=== PATIENT | female | born 1990 | race African-American/Black ===

== ENCOUNTER 2018-06-15 09:37 | Inpatient (IN) ==
[2018-06-15] MEDS ORDERED: ONDANSETRON 4 MG/2 ML VIAL IV PRN ×3 (09:54→16:32)
[2018-06-15] MEDS ORDERED: LACTATED RINGERS 1,000 ML IV PRN (09:54)
[2018-06-15] MEDS ORDERED: SODIUM CHLORIDE 0.9% 100 ML IV ONE (10:05)
[2018-06-15] MEDS ORDERED: AMPICILLIN 2,000 MG VIAL ONE (10:05)
[2018-06-15] MEDS ORDERED: BETAMETH SODIUM PHOS/ACETATE 30 MG/5 ML VIAL ONE (10:05)
[2018-06-15] MEDS: LACTATED RINGERS 1,000 ML IV SCH ×2 (10:08→11:56)
[2018-06-15] MEDS ORDERED: AMPICILLIN INJ 2,000 MG in SODIUM CHLORIDE 0.9% 100 ML IV SCH (10:30)
[2018-06-15] MEDS ORDERED: BETAMETH SODIUM PHOS/ACETATE 30 MG/5 ML VIAL IM SCH (10:30)
[2018-06-15 10:33] LABS: Basophils % 0.3 % (0.0-0.8); Eosinophils # 0.1 10*3/uL (0.0-0.87); Eosinophils % 0.6 % (0.00-10.9); Hematocrit 26.7 VOL% (35.7-47.0); Immature Granulocytes % 0.7 %; Lymphocytes # 2.1 10*3/uL (1.4-4.0); Lymphocytes % 15.7 % (21.3-54.2); Mean Corpuscular Hemoglobin 29 PG (27-34); Mean Corpuscular Volume 97.4 FL (87-102); Mean Platelet Volume 8.4 FL (9.6-12.0); Monocytes # 0.5 10*3/uL (0.11-0.8); Monocytes % 3.9 % (1.7-12.7); Neutrophils # 10.6 10*3/uL (1.4-7.4); Neutrophils % 78.8 % (38.7-73.9); Platelet Count 453 T/CUMM (130-400); Red Blood Count 2.74 MC/CUMM (3.8-5.5); Red Cell Distribution Width 13.6 % (9.3-17.3); White Blood Count 13.4 T/CUMM (4-12)
[2018-06-15 10:50] LABS: Alanine Aminotransferase < 9 U/L (13-56); Alkaline Phosphatase 223 U/L (45-117); Aspartate Amino Transferase 10 U/L (0-37); Bilirubin,Total < 0.39 MG/DL (0.2-1.0); Blood Urea Nitrogen 7 MG/DL (7-18); Calcium 8.4 MG/DL (8.5-10.1); Glucose 205 MG/DL (74-106); Osmolality,Calculated 271.2 MOS/KG (273-304); Potassium 3.8 MMOL/L (3.5-5.1); Sodium 134 MMOL/L (136-145); Total Protein 7.6 G/DL (6.4-8.3)
[2018-06-15 10:56] LABS: Amorphous Crystals,Urine Occasional /HPF (Few); Apearance,Urine Slightly Hazy (Clear); Bacteria,Urine Occasional /HPF (Few); Barbiturates Screen,Urine Negative (Negative); Benzodiazepines Screen,Urine Negative (Negative); Bilirubin,Urine Negative (Negative); Blood, Urine Small mg/dL (Negative); Cannabinoid Screen,Urine Negative (Negative); Glucose,Urine (UA) Negative (Negative); Ketones,Urine Negative (Negative); Mucus,Urine Occasional /LPF (Occasional); Nitrite,Urine Negative (Negative); Opiate Screen,Urine Negative (Negative); Phencyclidine Screen,Urine Negative (Negative); Protein,Urine 30 MG/DL; RBC,Urine 1 /HPF (0-4); Squamous Epithelial Cell,Urine Occasional /HPF (0-10); Urine Color Yellow (Yellow); Urine Specific Gravity 1.012 (1.001-1.035); WBC,Urine 100 /HPF (0-6)
[2018-06-15] MEDS ORDERED: INSULIN REGULAR 100 UNIT/ML SUBCUT ONE (11:43)
[2018-06-15] MEDS ORDERED: BUTORPHANOL 1 MG/ML VIAL IV PRN (13:56)
[2018-06-15] MEDS ORDERED: NALOXONE 0.4 MG/ML VIAL IV PRN (14:57)
[2018-06-15] MEDS ORDERED: FAMOTIDINE 20 MG/2 ML VIAL IV ONE (14:57)
[2018-06-15] MEDS ORDERED: ePHEDrine 50 MG/ML AMP IV PRN (14:57)
[2018-06-15] MEDS ORDERED: hydrOXYzine HCL 25 MG/1 ML VIAL IM PRN (14:57)
[2018-06-15] MEDS ORDERED: PROMETHAZINE 25 MG/1 ML VIAL IM PRN (14:57)
[2018-06-15] MEDS ORDERED: diphenhydrAMINE 50 MG/1 ML VIAL IV PRN (14:57)
[2018-06-15] MEDS ORDERED: fentaNYL 2 MCG/ROPIV 0.2% EPID 100 ML EPIDURAL SCH (15:00)
[2018-06-15] MEDS ORDERED: CITRIC ACID/SODIUM CITRATE 30 ML UDCUP ONE (15:05)
[2018-06-15] MEDS ORDERED: CITRIC ACID/SODIUM CITRATE 30 ML UDCUP PO ONE (15:08)
[2018-06-15] MEDS ORDERED: LIDOCAINE 1% 50 ML VIAL ONE (15:19)
[2018-06-15] MEDS ORDERED: BUTORPHANOL 2 MG/ML VIAL ONE (15:19)
[2018-06-15] MEDS ORDERED: OXYTOCIN/LR 20 UNIT/1,000 ML BAG IV ONE ×2 (15:20→16:32)
[2018-06-15] MEDS ORDERED: miSOPROStol 200 MCG TABLET ONE (15:20)
[2018-06-15] MEDS ORDERED: METHYLERGONOVINE 0.2 MG/1 ML AMP ONE (15:20)
[2018-06-15] MEDS ORDERED: TRANEXAMIC ACID 1,000 MG/10 ML VIAL ONE (15:20)
[2018-06-15] MEDS ORDERED: CARBOPROST TROMETHAMINE 250 MCG/ML AMP IM ONE (15:20)
[2018-06-15] MEDS ORDERED: BUTORPHANOL 2 MG/ML VIAL IV ONE (15:49)
[2018-06-15] MEDS ORDERED: CLINDAMYCIN INJ 900 MG in PREMIX 1 EACH IV SCH (16:30)
[2018-06-15] MEDS ORDERED: BISACODYL 10 MG SUPP RECTAL PRN (16:32)
[2018-06-15] MEDS ORDERED: oxyCODONE/ACETAMINOPHEN 5-325 MG TABLET PO PRN ×2 (16:32)
[2018-06-15] MEDS ORDERED: WITCH HAZEL PADS 100/JAR TOP PRN (16:32)
[2018-06-15] MEDS ORDERED: GLUCAGON 1 MG VIAL IM PRN (16:32)
[2018-06-15] MEDS ORDERED: LANOLIN 50% CREAM 0.3 OZ TUBE TOP PRN (16:32)
[2018-06-15] MEDS ORDERED: BENZOCAINE 20%/MENTHOL 0.5% SPRAY 56 GM CAN TOP PRN (16:32)
[2018-06-15] MEDS ORDERED: HYDROCORTISONE 2.5% RECTAL CREAM 30 GM TUBE TOP PRN (16:32)
[2018-06-15] MEDS ORDERED: ACETAMINOPHEN 325 MG TABLET PO PRN (16:32)
[2018-06-15] MEDS ORDERED: DEXTROSE 50% 25 GM/50 ML VIAL IV PRN (16:32)
[2018-06-15] MEDS ORDERED: DIPH/TET/ACEL PERT BOOSTER VACCINE 0.5 ML VIAL IM ONE (17:00)
[2018-06-15] MEDS ORDERED: MEASLES/MUMPS/RUBELLA VACCINE 0.5 ML VIAL SUBCUT ONE (17:00)
[2018-06-15] MEDS ORDERED: RHO(D) IMMUNE GLOBULIN 300 MCG SYRINGE IM ONE (17:00)
[2018-06-15] MEDS: INSULIN REGULAR 100 UNIT/ML SUBCUT PRN (18:13)
[2018-06-15 19:44] LABS: HIV Antigen/Antibody Result Nonreactive (Nonreactive); Hepatitis B Surface Ag Quant < 0.10 Index; Hepatitis B Surface Ag Result Negative (Negative)
[2018-06-15] MEDS ORDERED: FERROUS SULFATE 325 MG TABLET PO SCH (21:00)
[2018-06-15] MEDS: DOCUSATE SODIUM 100 MG CAPSULE PO SCH (21:11)
[2018-06-16] MEDS: INSULIN REGULAR 100 UNIT/ML SUBCUT PRN ×2 (00:06→05:46)
[2018-06-16] MEDS: IBUPROFEN 800 MG TABLET PO PRN ×2 (00:09→22:09)
[2018-06-16] MEDS ORDERED: DEXTROSE 50% 25 GM/50 ML VIAL IV PRN (01:48)
[2018-06-16] MEDS ORDERED: GLUCAGON 1 MG VIAL IM PRN (01:48)
[2018-06-16 04:56] LABS: Basophils % 0.2 % (0.0-0.8); Eosinophils % 0.1 % (0.00-10.9); Hematocrit 24.6 VOL% (35.7-47.0); Hemoglobin 7.5 GM/DL (12.0-16.0); Immature Granulocytes % 1.1 %; Lymphocytes # 2.3 10*3/uL (1.4-4.0); Lymphocytes % 12.3 % (21.3-54.2); Mean Corpuscular HGB Conc 30.5 GM/DL (32-36); Mean Corpuscular Hemoglobin 29 PG (27-34); Mean Corpuscular Volume 95.3 FL (87-102); Mean Platelet Volume 8.8 FL (9.6-12.0); Monocytes # 0.7 10*3/uL (0.11-0.8); Monocytes % 3.8 % (1.7-12.7); Neutrophils # 15.7 10*3/uL (1.4-7.4); Neutrophils % 82.5 % (38.7-73.9); Platelet Count 426 T/CUMM (130-400); Red Blood Count 2.58 MC/CUMM (3.8-5.5); Red Cell Distribution Width 13.6 % (9.3-17.3); White Blood Count 18.9 T/CUMM (4-12)
[2018-06-16] MEDS ORDERED: SODIUM CHLORIDE 0.9% 1,000 ML IV PRN (07:23)
[2018-06-16] MEDS: FERROUS SULFATE 325 MG TABLET PO SCH ×3 (09:28→22:08)
[2018-06-16] MEDS: DOCUSATE SODIUM 100 MG CAPSULE PO SCH ×2 (09:28→22:08)
[2018-06-16] MEDS ORDERED: INSULIN ASPART PROTAMINE/ASPART 70/30 100 UNIT/ML SUBCUT SCH ×2 (11:30→17:00)
[2018-06-16] MEDS: INSULIN LISPRO 100 UNIT/ML SUBCUT SCH ×2 (12:10→18:06)
[2018-06-16 19:45] LABS: Hematocrit 30.9 VOL% (35.7-47.0); Hemoglobin 9.9 GM/DL (12.0-16.0)
[2018-06-16] MEDS: INSULIN GLARGINE 100 UNIT/ML SUBCUT SCH ×2 (23:30→23:31)
[2018-06-17] MEDS ORDERED: INSULIN ASPART PROTAMINE/ASPART 70/30 100 UNIT/ML SUBCUT SCH (07:30)
[2018-06-17 07:31] VITALS: BP 141/85
[2018-06-17] MEDS: INSULIN LISPRO 100 UNIT/ML SUBCUT SCH (07:52)
[2018-06-17] MEDS: INSULIN GLARGINE 100 UNIT/ML SUBCUT SCH ×2 (07:53→08:46)
[2018-06-17] MEDS: FERROUS SULFATE 325 MG TABLET PO SCH (08:45)
[2018-06-17] MEDS: DOCUSATE SODIUM 100 MG CAPSULE PO SCH (08:45)
[2018-06-17] MEDS ORDERED: SULFAMETHOX/TRIMETHOPRIM 800-160 MG TABLET PO SCH (09:30)
== END 2018-06-17 11:55 | disposition home or self-care (01) | DRG 805 ==
LOC: N.LDOUT 09:37 → N.LD 09:42 → N.OB 18:40
PROVIDERS: ADMIT Obstetrics & Gynecology; ATTEND Obstetrics & Gynecology